=== PATIENT | female | born 1955 | race Asian ===

== ENCOUNTER 2021-12-21 10:02 | Emergency (ER) | payer MEDICARE ==
[~2021-12-21] VITALS: Ht 162.6 cm; Wt 72.7 kg
[2021-12-21] MEDS ORDERED: POVIDONE-IODINE 10% 15 ML SOLUTION UD TP ONE (11:45)
[2021-12-21] MEDS ORDERED: BACITRACIN 0.9 GM PACKET OINTMENT TP ONE (11:45)
[2021-12-21] MEDS ORDERED: TraMADol HCL 50 MG TABLET PO ONE (11:45)
[2021-12-21] MEDS ORDERED: LIDOCAINE 2%/EPI 1:200,000/PF 10 ML VIAL PERC ONE (12:30)
[2021-12-21] MEDS ORDERED: CEPH-558 PO (13:42)
[2021-12-21 13:50] VITALS: BP 142/74
== END 2021-12-21 14:03 | disposition home or self-care (01) ==
LOC: EMS 10:12
DX: S01.112A Laceration without foreign body of left eyelid and periocular area, initial encounter (principal); I10 Essential (primary) hypertension; E78.00 Pure hypercholesterolemia, unspecified; W06.XXXA Fall from bed, initial encounter; Y93.89 Activity, other specified; Y92.89 Other specified places as the place of occurrence of the external cause; Y99.8 Other external cause status
CPT/HCPCS: 12011; 99283

== ENCOUNTER 2021-12-23 10:16 | Emergency (ER) | payer MEDICARE ==
[~2021-12-23] VITALS: Ht 162.6 cm; Wt 72.7 kg
[~2021-12-23 10:16] MED LIST: CEPH-558 PO
[2021-12-23 10:20] VITALS: BP 144/85
[2021-12-23] MEDS ORDERED: GABA-1181 PO (11:42)
[2021-12-23] MEDS ORDERED: TRAM50TA4 PO (11:42)
== END 2021-12-23 12:04 | disposition home or self-care (01) ==
LOC: EMS 10:16
DX: S05.42XD Penetrating wound of orbit with or without foreign body, left eye, subsequent encounter (principal); E78.00 Pure hypercholesterolemia, unspecified; I10 Essential (primary) hypertension; X58.XXXD Exposure to other specified factors, subsequent encounter
CPT/HCPCS: 99283; Z7502

== ENCOUNTER 2021-12-28 14:33 | Emergency (ER) | payer MEDICARE ==
[~2021-12-28] VITALS: Ht 162.6 cm; Wt 72.7 kg
[~2021-12-28 14:33] MED LIST changes: +GABA-1181 PO
[2021-12-28 14:41] VITALS: BP 140/82
[2021-12-28] MEDS ORDERED: BACI28OI29 TP (15:40)
== END 2021-12-28 15:57 | disposition home or self-care (01) ==
LOC: EMS 14:33
DX: S01.112D Laceration without foreign body of left eyelid and periocular area, subsequent encounter (principal); E78.00 Pure hypercholesterolemia, unspecified; I10 Essential (primary) hypertension; X58.XXXD Exposure to other specified factors, subsequent encounter
CPT/HCPCS: 99282; Z7502